=== PATIENT | male | born 1950 | race Caucasian/White ===

== ENCOUNTER 2016-11-10 17:44 | Emergency (ER) | payer OTHER ==
[2016-11-10 18:04] VITALS: PULSE 57; TEMP 98.2
--- NOTE | 2016-11-10 18:23 | CPEKG ---
Heart Rate: 59 RR Interval: 1017 P-R Interval: 156 QRSD Interval: 94 QT Interval: 404 QTC Interval: 401 P Lincoln: -18 QRS Lincoln: -31 T Wave Lincoln: 17 EKG Severity - OTHERWISE NORMAL ECG - EKG Impression: SINUS RHYTHM EKG Impression: LEFT AXIS DEVIATION Electronically Signed By: Raul Taylor 10-Nov-2016 23:03:09
--- NOTE | 2016-11-10 18:25 | EDPHY ---
H & P Stated Complaint: PALPITATIONS, Time Seen by Provider: 11/10/16 18:25 - Personal History Current Tetanus/Diphtheria Vaccine: Yes Current Tetanus Diphtheria and Acellular Pertussis (TDAP): Yes - Medical/Surgical History Hx Asthma: No Hx Chronic Respiratory Disease: No Hx Diabetes: No Hx Cardiac Disease: Yes Hx Renal Disease: No Hx Cirrhosis: No Hx Alcoholism: No Hx HIV/AIDS: No Hx Splenectomy or Spleen Trauma: No Other PMH: PMH: Afib, - Social History Smoking Status: Never smoked Constitutional: Initial Vital Signs Temperature (C) 36.8 C 11/10/16 18:01 Heart Rate 57 L 11/10/16 18:01 Respiratory Rate 18 11/10/16 18:01 Blood Pressure 135/87 H 11/10/16 18:01 O2 Sat (%) 95 11/10/16 18:01 O2 Delivery Mode Room Air Allergies/Adverse Reactions: No Known Allergies Allergy (Unverified 10/16/10 11:18) Home Medications: Medication Instructions Recorded Aspirin 325 mg (*) 11/10/16 Medical Decision Making ED Course/Re-evaluation: CHIEF COMPLAINT: Heart palpitations HISTORY OF PRESENT ILLNESS: This patient is a 66 year old male with a history of atrial fibrillation who presents to the Emergency Department complaining of heart palpitations beginning at 4:30pm this afternoon. He reports that he was tachycardic above 100 for approximately 1.5 hours. He takes Aspirin daily but no additional medications for a fib. REVIEW OF SYSTEMS: A 10 point review of systems was performed and is negative with the exception of the elements mentioned in the history of present illness. PHYSICAL EXAM: [place] 57, [place] [address], O2 Sat 95%, RR 18. Temp noted General Appearance: Alert, well hydrated, appropriate, and non-toxic appearing. Head: Atraumatic without scalp tenderness or obvious injury Eyes: Pupils equal, round, reactive to light and accommodation, EOMI, no trauma , no injection. Ears: Clear bilaterally, no perforation, normal landmarks Nose: Atraumatic, no rhinorrhea, clear. Throat: There is no erythema or exudates, no lesions, normal tonsils, mucus membranes moist. Neck: Supple, 2+ carotid upstroke, nontender, no lymphadenopathy. Respiratory: No retractions, no distress, no wheezes, and no accessory muscle use. Lungs are clear to auscultation bilaterally. Cardiovascular: Regular rate and rhythm, no murmurs, rubs, or gallops. Bilateral carotid, radial, dorsalis pedis, and posterior tibial pulses intact. Good capillary refill all extremities. Gastrointestinal: Abdomen is soft, nontender, non-distended, no masses, no rebound, no guarding, no peritoneal signs. Musculoskeletal: Normal active ROM of all extremities, atraumatic. Neurological: Alert, appropriate, and interactive. The patient has normal DTRs and non-focal cranial nerves, motor, sensory, and cerebellar exam. Skin: No rashes, good turgor, no nodules on palpation. Past medical history: Atrial fibrillation, followed by Dr. Driscoll. Past surgical history: Denies. Social history: Non-smoker. EKG INTERPRETATION: The 12 lead EKG was interpreted by myself: See hard copy and/or "tracemaster" electronic copy for interpretation. DIFFERENTIAL DIAGNOSIS: The differential diagnosis for the patient's palpitations included but was not limited to atrial fibrillation or other arrhythmia. MEDICAL DECISION MAKING: This 66 y/o male presents to the ED following an episode of resolved tachycardia at 1630 today. Upon evaluation, his tachycardia has completely resolved and he is in normal rhythm on the monitor. I discussed with the patient that, with an hour of atrial fibrillation, he may qualify for a true anticoagulant. 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 He is amenable to this and will be discharged home in stable condition. Departure - Departure Disposition: Home, Routine, Self-Care Clinical Impression: Palpitations, Transient atrial fibrillation Condition: Good Instructions: Atrial Fibrillation (ED) Additional Instructions: 1. Call tomorrow to schedule an appointment with Dr. Driscoll to consider anticoagulant treatment for your atrial fibrillation. 2. Return to the Emergency Department for return of palpitations, lightheadedness, chest pain, headache, or other serious concerns. Referrals: Joshua Shepard MD [Primary Care Provider] - As per Instructions Ludwig Driscoll MD [Medical Doctor] - As per Instructions Report Scribed for: Raul Taylor Report Scribed by: Simin So Date of Report: 11/10/16 Time of Report: 18:32
[2016-11-10 18:57] VITALS: BP 114/96; RESP 15; O2SAT 98
== END 2016-11-10 19:06 | disposition home or self-care (01) ==
DX: I48.91 Unspecified atrial fibrillation (principal)

== ENCOUNTER → 2017-11-07 | Outpatient (CLI) | payer OTHER | LOC: BHFA 09:00 | PROVIDERS: ATTEND Internal Medicine Cardiovascular Disease | DX: I48.91 Unspecified atrial fibrillation (principal); I48.92 Unspecified atrial flutter ==

== ENCOUNTER → 2017-12-06 | Outpatient (CLI) | payer OTHER | LOC: FCPNEURO 21:30 | PROVIDERS: ATTEND Internal Medicine Sleep Medicine | DX: G47.33 Obstructive sleep apnea (adult) (pediatric) (principal); G47.31 Primary central sleep apnea ==

== ENCOUNTER 2018-01-15 11:16 | Day surgery (SDC) | payer OTHER, MEDICARE ==
[2018-01-15] MEDS ORDERED: BENZOCAINE UNIT DOSE SPRAY HURRICAINE MM ONE (11:19)
[2018-01-15] MEDS ORDERED: NS 500 ML IV ONE (11:19)
[2018-01-15] MEDS ORDERED: MIDAZOLAM 2 MG/2 ML VIAL IVP ONE (11:19)
[2018-01-15] MEDS ORDERED: fentaNYL 100 MCG/2 ML INJ IVP ONE (11:19)
--- NOTE | 2018-01-15 11:38 | PDGENHP ---
History & Physical Chief Complaint: symptomatic afib Relevant Physical Exam: [id number]. cta. ao3 Cardiorespiratory Assessment: jo to assess mr prior to ablation
[2018-01-15] MEDS ORDERED: LIDOCAINE 2% 100 MG/5 ML SYR ONE (11:44)
[2018-01-15] MEDS ORDERED: PROPOFOL 200 MG/20 ML VIAL ONE ×3 (11:44→12:27)
--- NOTE | 2018-01-15 11:52 | PDANEPAE ---
ANE History of Present Illness Patient presents for OLGA LIDIA ANE Past Medical History - Cardiovascular History Hx Arrhythmias: Yes Hx CHF / Valvular Disease: Yes - Pulmonary History Hx Oxygen in Use at Home: No Hx Sleep Apnea: Yes - Endocrine History Hx Diabetes: No ANE Review of Systems Review of Systems: - Exercise capacity Exercise capacity: >=4 METS ANE Patient History - Allergies Allergies/Adverse Reactions: No Known Allergies Allergy (Unverified 10/16/10 11:18) - Home Medications Home medications: home medication list seen and reviewed Home Medications: Aspirin 325 mg (*) 11/10/16 [Last Taken Unknown] - NPO status NPO Status: no food or drink >8 hours - Anes Hx Anes Hx: no prior problems - Smoking Hx Smoking Status: Never smoked ANE Labs/Vital Signs - Vital Signs Height: 187.96 cm Weight: 92.986 kg ANE Physical Exam - Airway Neck exam: FROM Mallampati Score: Class 2 Mouth exam: normal dental/mouth exam - Pulmonary Pulmonary: no respiratory distress - Cardiovascular Cardiovascular: regular rate and rhythym - ASA Status ASA Status: III ANE Anesthesia Plan Anesthesia Plan: GA with mask (RBA discussed)
--- NOTE | 2018-01-24 08:07 | ECHO ---
[email or web address] [address] [address] Main: [phone] Fax: Transesophageal Echocardiography Name: EHSAN HOWARD MR#: [id number] Study Date: 01/15/2018 Study Time: 11:44 AM Date of : 1950 Age: 67 year(s) Height: ( ) Weight: ( ) BSA: Gender: Male Examination: OLGA LIDIA Indication: Image Quality: Adequate Contrast: Requested by: Maikol Ceja Heart Rate: Rhythm: BP: 152 mmHg/113 mmHg Procedure Staff Rig Mechanic: Danika Donnelly [facility] Reading Physician: Maikol Ceja MD Requesting Provider: OLGA LIDIA Exam Details Patient Consent: Risks, alternatives of procedure explained to patient, informed consent obtained. Measurements: Chambers Valvular Assessment AV/MV Valvular Assessment TV/PV Normal Normal Normal Name Value Range Name Value Range Name Value Range EF Range: 65-70 % Additional Measurements: Findings: Left Ventricle: Normal size left ventricle. No LV hypertrophy. Normal global systolic LV function. The ejection fraction is estimated to be 65-70 %. No regional wall motion abnormality. Normal diastolic LV function. Right Ventricle: Normal size right ventricle. Left Atrium: The left atrium is normal in size. Right Atrium: The right atrium is normal in size. Mitral Valve: The mitral valve is normal in appearance and function. Moderate to severe mitral regurgitation. No mitral stenosis is present. Patient: EHSAN HOWARD Study Date: 01/15/2018 Page 1 of 2 11:44 AM Aortic Valve: The aortic valve is normal in appearance and function. Mild aortic valve regurgitation is present. No aortic valve stenosis is present. Tricuspid Valve: The tricuspid valve is normal in appearance and function. Pulmonic Valve: The pulmonic valve is normal in appearance and function. Aorta: The aorta is normal. Pericardium: No pericardial effusion. l1n (No Signature Object) Patient: EHSAN HOWARD Study Date: 01/15/2018 Page 2 of 2 11:44 AM [id number]
== END 2018-01-15 13:43 | disposition home or self-care (01) ==
LOC: FCATH 11:16
PROVIDERS: ATTEND Internal Medicine Cardiovascular Disease
PROC: B245ZZ4 Ultrasonography of Left Heart, Transesophageal (ICD-10-PCS; principal; 2018-01-15)
DX: Z01.810 Encounter for preprocedural cardiovascular examination (principal); I48.91 Unspecified atrial fibrillation
CPT/HCPCS: J2001; J2704

== ENCOUNTER → 2018-05-07 | Outpatient (CLI) | payer OTHER, MEDICARE | LOC: FIMAGING 09:33 | PROVIDERS: ATTEND Thoracic Surgery (Cardiothoracic Vascular Surgery) | DX: J90 Pleural effusion, not elsewhere classified (principal); J98.11 Atelectasis; Z86.79 Personal history of other diseases of the circulatory system; Z98.890 Other specified postprocedural states ==

== ENCOUNTER 2018-07-07 16:36 | Emergency (ER) | payer OTHER, MEDICARE ==
[2018-07-07 17:17] LABS: PLATELET COUNT 259 10^3/uL (150-400)
--- NOTE | 2018-07-07 17:22 | EDPHY ---
H & P Stated Complaint: irreg heartbeat Time Seen by Provider: 07/07/18 16:38 HPI/ROS: CHIEF COMPLAINT: Palpitations HISTORY OF PRESENT ILLNESS: 68-year-old male with atrial fibrillation status post Maze procedure presents with palpitations. Onset of irregular heartbeat this morning, intermittent since then. The heart rate is not fast and there are no associated symptoms. Concerned about being in recurrent atrial fibrillation. REVIEW OF SYSTEMS: complete 10 point ROS reviewed and is negative except for the noted elements in the HPI - Personal History Current Tetanus Diphtheria and Acellular Pertussis (TDAP): Yes - Medical/Surgical History Hx Asthma: No Hx Chronic Respiratory Disease: No Hx Diabetes: No Hx Cardiac Disease: Yes Hx Renal Disease: No Hx Cirrhosis: No Hx Alcoholism: No Hx HIV/AIDS: No Hx Splenectomy or Spleen Trauma: No Other PMH: Afib, mitral valve regurg, open heart surgery 17 - Social History Smoking Status: Never smoked - Physical Exam Exam: General Appearance: Alert, pleasant Eyes: Pupils equal and round, no conjunctival pallor or injection ENT, Mouth: Mucous membranes moist Neck: Normal inspection Respiratory: Lungs are clear to auscultation Cardiovascular: Regular rate and rhythm, occasional ectopic beat Gastrointestinal: Abdomen is soft and nontender Neurological: A&O, nonfocal, normal gait Skin: Warm and dry, no rash Extremities: Nontender, no pedal edema Psychiatric: Mood and affect normal Constitutional: Initial Vital Signs Temperature (C) 36.8 C 07/07/18 16:42 Heart Rate 77 07/07/18 16:42 Respiratory Rate 16 07/07/18 16:42 Blood Pressure 127/90 H 07/07/18 16:42 O2 Sat (%) 94 07/07/18 16:42 O2 Delivery Mode Room Air Allergies/Adverse Reactions: Fish Containing Products [fish] Allergy (Verified 04/24/18 10:12) Anaphylaxis kiwi Allergy (Verified 04/25/18 07:55) Itching Home Medications: Medication Instructions Recorded Atorvastatin Calcium [Lipitor 40 40 mg PO DAILY 01/22/18 mg (*)] Ascorbic Acid [Vitamin C 500 mg 500 mg PO DAILY 04/17/18 (*)] Cholecalciferol Vit D3 [Vitamin D3 2,000 units PO DAILY 04/17/18 2000 units tab (OTC)] Fluticasone Nasal [Flonase Nasal 2 sprays NASAL DAILY 04/17/18 [place]] Herbals/Supplements -Info Only 1 ea PO DAILY 04/17/18 Multivitamins [Multivitamin (*)] 1 each PO DAILY 04/17/18 [place]-3 Fatty Acids [Fish Oil 1000 1,000 mg PO BID 04/17/18 mg (*)] Omeprazole 20 mg PO DAILY 04/17/18 Acetaminophen [Tylenol 325mg (*)] 325 - 650 mg PO Q4HRS PRN tab 04/30/18 Aspirin [Aspirin 81mg (*)] 81 mg PO DAILY tab.chew 04/30/18 Furosemide [Lasix 40 MG (*)] 40 mg PO DAILY #30 tab 04/30/18 Ibuprofen [Motrin (*)] 600 mg PO QID PRN tab 04/30/18 Potassium Chloride [Klor-Con M20] 20 meq PO DAILY #30 tab 04/30/18 Warfarin Sodium [Coumadin 2.5MG 2.5 mg PO DAILY AT 4PM #60 tab 04/30/18 (*)] traMADol [Ultram 50 mg (*)] 50 mg PO Q6HRS PRN #20 tab 04/30/18 Medical Decision Making - Diagnostics EKG Interpretation: EKG interpreted by me reveals normal sinus rhythm, rate 68, borderline LAD, no ST or T segment changes. Interpretation: Borderline EKG ED Course/Re-evaluation: This patient presents with palpitations. monitor technician reveals PACs, no evidence of atrial fibrillation. Electrolytes are normal. Given 1 L normal saline without change in PACs. Will follow up with Cardiology if the symptoms persist. Differential Diagnosis: includes though not limited to afib, SVT, ventricular dysrhythmia - Data Points Laboratory Results: Laboratory Results 07/07/18 16:45 07/07/18 16:45 07/07/18 07/07/18 07/07/18 16:48 16:45 16:45 WBC RBC Hgb Hct MCV MCH MCHC RDW Plt Count MPV Neut % (Auto) Lymph % (Auto) Adams % (Auto) Eos % (Auto) Baso % (Auto) Nucleat RBC Rel Count Absolute Neuts (auto) Absolute Lymphs (auto) Absolute Monos (auto) Absolute Eos (auto) Absolute Basos (auto) Absolute Nucleated RBC Immature Gran % Immature Gran # PT 23.9 SEC H SEC (12.0-15.0) INR 2.13 H (0.83-1.16) Sodium 142 mEq/L mEq/L (135-145) Potassium 4.2 mEq/L mEq/L (3.3-5.0) Chloride 105 mEq/L mEq/L (97-110) Carbon Dioxide 26 mEq/l mEq/l (22-31) Anion Gap 11 mEq/L mEq/L (8-16) BUN 16 mg/dL mg/dL (7-23) Creatinine 0.9 mg/dL mg/dL (0.7-1.3) Estimated GFR > 60 Glucose 92 mg/dL mg/dL (70-100) Calcium 9.6 mg/dL mg/dL (8.5-10.4) POC Troponin I 0.01 ng/mL ng/mL (0.00-0.08) 07/07/18 16:45 WBC 7.16 10^3/uL 10^3/uL (3.80-9.50) RBC 5.43 10^6/uL 10^6/uL (4.40-6.38) Hgb 15.4 g/dL g/dL (13.7-17.5) Hct 46.7 % % (40.0-51.0) MCV 86.0 fL fL (81.5-99.8) MCH 28.4 pg pg (27.9-34.1) MCHC 33.0 g/dL g/dL (32.4-36.7) RDW 13.1 % % (11.5-15.2) Plt Count 259 10^3/uL 10^3/uL (150-400) MPV 9.8 fL fL (8.7-11.7) Neut % (Auto) 63.0 % % (39.3-74.2) Lymph % (Auto) 24.9 % % (15.0-45.0) Adams % (Auto) 7.1 % % (4.5-13.0) Eos % (Auto) 4.1 % % (0.6-7.6) Baso % (Auto) 0.6 % % (0.3-1.7) Nucleat RBC Rel Count 0.0 % % (0.0-0.2) Absolute Neuts (auto) 4.52 10^3/uL 10^3/uL (1.70-6.50) Absolute Lymphs (auto) 1.78 10^3/uL 10^3/uL (1.00-3.00) Absolute Monos (auto) 0.51 10^3/uL 10^3/uL (0.30-0.80) Absolute Eos (auto) 0.29 10^3/uL 10^3/uL (0.03-0.40) Absolute Basos (auto) 0.04 10^3/uL 10^3/uL (0.02-0.10) Absolute Nucleated RBC 0.00 10^3/uL 10^3/uL (0-0.01) Immature Gran % 0.3 % % (0.0-1.1) Immature Gran # 0.02 10^3/uL 10^3/uL (0.00-0.10) PT INR Sodium Potassium Chloride Carbon Dioxide Anion Gap BUN Creatinine Estimated GFR Glucose Calcium POC Troponin I Point of Care Test Results: Chemistry 07/07/18 16:48 POC Troponin I 0.01 ng/mL ng/mL (0.00-0.08) Departure - Departure Disposition: Home, Routine, Self-Care Clinical Impression: PAC (premature atrial contraction) Condition: Good Instructions: Premature Atrial Contractions (ED) Additional Instructions: You are having PAC's. Fortunately, you are not in atrial fibrillation. Referrals: Joshua Shepard MD [Primary Care Provider] - As per Instructions Philip Nails MD [Medical Doctor] - As per Instructions
[2018-07-07 17:27] LABS: INR 2.13 (0.83-1.16); PROTIME(PATIENT) 23.9 SEC (12.0-15.0)
[2018-07-07 18:04] VITALS: BP 116/89
--- NOTE | 2018-07-07 18:23 | CPEKG ---
Test Reason : OPEN Blood Pressure : / mmHG Vent. Rate : 068 BPM Atrial Rate : 067 BPM P-R Int : 162 ms QRS Dur : 090 ms QT Int : 399 ms P-R-T Axes : 062 -28 043 degrees QTc Int : 425 ms Sinus rhythm Borderline left axis deviation Confirmed by Brice Bob ([id number]) on 07/07/2018 6:23:25 PM Referred By: Confirmed By:Brice Bob
== END 2018-07-07 18:03 | disposition home or self-care (01) ==
DX: I49.1 Atrial premature depolarization (principal); I34.0 Nonrheumatic mitral (valve) insufficiency
CPT/HCPCS: 84484-PO

== ENCOUNTER → 2018-07-30 | Outpatient (CLI) | payer OTHER, MEDICARE | LOC: BHLMT 10:45 | PROVIDERS: ATTEND Internal Medicine Cardiovascular Disease | DX: I48.91 Unspecified atrial fibrillation (principal); Z98.890 Other specified postprocedural states; Z86.79 Personal history of other diseases of the circulatory system | CPT/HCPCS: 93225-PO; 93226-PO; 93306-PO ==

== ENCOUNTER → 2018-12-31 | Outpatient (CLI) | payer OTHER, MEDICARE | LOC: BMCIMAGING 07:45 | PROVIDERS: ATTEND Physician Assistant | DX: R10.11 Right upper quadrant pain (principal) ==